=== PATIENT | female | born 1970 | race Caucasian/White ===

== ENCOUNTER 2017-01-24 05:25 | Day surgery (SDC) | payer OTHER ==
[~2017-01-24] VITALS: Ht 172.7 cm; Wt 80.7 kg
[~2017-01-24 05:25] MED LIST: CELEXA20 MG PO; FOLIC ACID1 MG PO; LEVAQUIN500 MG PO; SYMBICORT60 INHALAT IH; TRAMADOL HCL50 MG PO; ZANAFLEX4 M1 PO
[2017-01-24 05:49] VITALS: BP 132/72
[2017-01-24 07:02] LABS: HEMATOCRIT 38.1 % (36.0-46.0); MCH 34.9 PG (29.0-34.0); MCHC 34.4 G/DL (30.0-36.0); MCV 101.6 FL (83-99); PLATELET COUNT 201 K/uL (156-360); RBC DIS.WIDTH-CV 11.9 % (11.8-14.6); RBC DIS.WIDTH-SD 44.5 % (39-53); RED BLOOD COUNT 3.75 M/uL (3.80-5.20); WHITE BLOOD COUNT 7.6 K/uL (4.1-10.2)
[2017-01-24 07:26] LABS: ANION GAP 7 MEQ/L (2-14); CHLORIDE 108 MEQ/L (99-109); POTASSIUM 4.5 MEQ/L (3.7-5.4); SAMPLE HEMOLYSIS CHECK 0; SAMPLE ICTERIC CHECK 0; SAMPLE LIPEMIA CHECK 0; SODIUM 141 MEQ/L (136-147); TOTAL BILIRUBIN 0.6 MG/DL (0.0-1.0)
[2017-01-24 07:31] LABS: ALKALINE PHOSPHATASE 58 IU/L (3-129); GFR ESTIMATE (CALCULATED) > 59 mL/min/; GLUCOSE 86 mg/dL (70-99); UREA NITROGEN (BUN) 11 mg/dL (9-23)
[2017-01-24 09:15] VITALS: BP 141/72
[2017-01-24 09:51] VITALS: BP 160/72
== END 2017-01-24 09:57 | disposition home or self-care (01) ==
LOC: SDC 05:25
PROVIDERS: Obstetrics & Gynecology Gynecologic Oncology
PROC: 0UBM0ZZ Excision of Vulva, Open Approach (ICD-10-PCS; principal; 2017-01-24)
DX: D07.1 Carcinoma in situ of vulva (principal); J44.9 Chronic obstructive pulmonary disease, unspecified; R00.1 Bradycardia, unspecified; Z87.891 Personal history of nicotine dependence
CPT/HCPCS: 80053; 85027; 85730; 88305; J0131; J0690; J1100; J2175; J2250; J2405; J3010